=== PATIENT | male | born 1990 | race Caucasian/White ===

== ENCOUNTER → 2021-01-22 | Outpatient (CLI) | payer OTHER ==
[2021-01-22 14:46] LABS: APPEARANCE, URINE CLEAR (CLEAR); BACTERIA, URINE AUTO NEGATIVE (NEGATIVE); BILIRUBIN, URINE AUTO NEGATIVE (NEGATIVE); BLOOD, URINE BLOOD NEGATIVE (NEGATIVE); COLOR, URINE YELLOW (YELLOW); GLUCOSE, URINE (UA) AUTO NEGATIVE (NEGATIVE); KETONE, URINE AUTO NEGATIVE (NEGATIVE); LEUKOCYTE ESTERASE, URINE AUTO NEGATIVE (NEGATIVE); NITRITE, URINE AUTO NEGATIVE (NEGATIVE); PROTEIN, URINE AUTO NEGATIVE (NEGATIVE); RBC, URINE AUTO 0 /HPF (0-3); SPECIFIC GRAVITY URINE AUTO 1.015 (1.002-1.035); SQUAMOUS EPITHELIAL CELL UR AU 0 /HPF (0-6); UROBILINOGEN, URINE AUTO 0.2 mg/dL (0.0-2.0); WBC, URINE AUTO 1 /HPF (0-3)
[2021-01-22 14:53] LABS: BASO % 0.2 % (0.0-1.0); EOS # 0.1 10^3/uL (0.0-0.5); EOS % 0.7 % (0.0-3.0); HEMATOCRIT 43.8 % (42.0-52.0); HEMOGLOBIN 14.5 g/dl (13.5-17.5); LYMPH # 2.5 10^3/uL (1.5-5.0); LYMPH % 30.6 % (24.0-44.0); MEAN CORPUSCULAR HGB CONC 33.1 g/dl (32.0-36.5); MEAN CORPUSCULAR VOLUME 93.8 fl (80.0-96.0); MONO # 0.7 10^3/uL (0.0-0.8); MONO % 8.3 % (2.0-8.0); NEUTROPHILS # 4.9 10^3/uL (1.5-8.5); NEUTROPHILS % 60.1 % (36.0-66.0); PLATELET COUNT, AUTOMATED 312 10^3/uL (150-450); RED BLOOD COUNT 4.67 10^6/uL (4.30-6.10); WHITE BLOOD COUNT 8.2 10^3/uL (4.0-10.0)
[2021-01-22 15:52] LABS: ALBUMIN 3.8 GM/DL (3.2-5.2); ALT/SGPT 386 U/L (12-78); BILIRUBIN,TOTAL 0.3 MG/DL (0.2-1.0); BLOOD UREA NITROGEN 17 MG/DL (7-18); CALCIUM LEVEL 9.3 MG/DL (8.5-10.1); CARBON DIOXIDE LEVEL 28 MEQ/L (21-32); CHLORIDE LEVEL 108 MEQ/L (98-107); CREATININE FOR GFR 0.86 MG/DL (0.70-1.30); GLOMERULAR FILTRATION RATE > 60.0 (>60); GLUCOSE, FASTING 84 MG/DL (70-100); HEPATITIS B SURFACE ANTIGEN NEGATIVE (NEGATIVE); POTASSIUM SERUM 4.6 MEQ/L (3.5-5.1); SODIUM LEVEL 140 MEQ/L (136-145); TOTAL PROTEIN 7.2 GM/DL (6.4-8.2)
[2021-01-22 16:05] LABS: HEPATITIS B CORE ANTIBODY IGM NEGATIVE (NEGATIVE)
[2021-01-22 16:06] LABS: HEPATITIS A ANTIBODY IGM NEGATIVE (NEGATIVE)
[2021-01-22 16:08] LABS: HEPATITIS C VIRUS ABY INDEX > 11.0 INDEX (<0.8)
== END ==
LOC: M LAB 12:41
PROVIDERS: ATTEND Physician Assistant Medical
DX: Z02.2 Encounter for examination for admission to residential institution (principal); B15.9 Hepatitis A without hepatic coma; B16.9 Acute hepatitis B without delta-agent and without hepatic coma; B18.2 Chronic viral hepatitis C

== ENCOUNTER → 2021-02-21 | Outpatient (CLI) | payer OTHER ==
[2021-02-21 14:59] LABS: MEAN CORPUSCULAR HEMOGLOBIN 31.1 pg (27.0-33.0); MEAN CORPUSCULAR HGB CONC 34.1 g/dl (32.0-36.5); MEAN CORPUSCULAR VOLUME 91.3 fl (80.0-96.0); PLATELET COUNT, AUTOMATED 256 10^3/uL (150-450); RED BLOOD COUNT 4.82 10^6/uL (4.30-6.10); WHITE BLOOD COUNT 7.7 10^3/uL (4.0-10.0)
[2021-02-21 15:38] LABS: ALBUMIN 3.6 GM/DL (3.2-5.2); ALT/SGPT 273 U/L (12-78); BILIRUBIN,TOTAL 0.3 MG/DL (0.2-1.0); BLOOD UREA NITROGEN 11 MG/DL (7-18); CALCIUM LEVEL 8.6 MG/DL (8.5-10.1); CARBON DIOXIDE LEVEL 30 MEQ/L (21-32); CHLORIDE LEVEL 107 MEQ/L (98-107); CREATININE FOR GFR 0.89 MG/DL (0.70-1.30); GLOMERULAR FILTRATION RATE > 60.0 (>60); GLUCOSE, FASTING 101 MG/DL (70-100); POTASSIUM SERUM 4.1 MEQ/L (3.5-5.1); SODIUM LEVEL 139 MEQ/L (136-145)
[2021-02-21 15:55] LABS: HEPATITIS B SURFACE ANTIGEN NEGATIVE (NEGATIVE)
[2021-02-21 16:24] LABS: HIV 1&2 SCREEN CENTAUR NEGATIVE (NEGATIVE)
[2021-02-21 16:27] LABS: HEPATITIS C VIRUS ABY INDEX > 11.0 INDEX (<0.8)
--- NOTE | 2021-02-21 16:34 | ECGEPIP ---
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
[2021-02-21 16:41] LABS: GC DNA AMPLIFICATION NEGATIVE (NEGATIVE)
== END ==
LOC: M LAB 14:06
PROVIDERS: ATTEND Family Medicine
DX: F11.20 Opioid dependence, uncomplicated (principal)

== ENCOUNTER → 2021-02-22 | Outpatient (CLI) | payer OTHER ==
[2021-02-22 17:33] LABS: HEPATITIS B SURFACE ANTIBODY POSITIVE (POSITIVE); HIV 1&2 SCREEN CENTAUR NEGATIVE (NEGATIVE)
== END ==
LOC: M LAB 14:25
PROVIDERS: ATTEND Internal Medicine Infectious Disease
DX: B18.2 Chronic viral hepatitis C (principal)

== ENCOUNTER → 2022-01-30 | Outpatient (REF) | payer OTHER ==
[2022-01-30 18:26] LABS: ALBUMIN 4.3 GM/DL (3.2-5.2); ALT/SGPT 35 U/L (12-78); BILIRUBIN,TOTAL 0.6 MG/DL (0.2-1.0); BLOOD UREA NITROGEN 14 MG/DL (7-18); CALCIUM LEVEL 9.5 MG/DL (8.5-10.1); CARBON DIOXIDE LEVEL 31 MEQ/L (21-32); CHLORIDE LEVEL 104 MEQ/L (98-107); CREATININE FOR GFR 0.82 MG/DL (0.70-1.30); GLOMERULAR FILTRATION RATE > 60.0 (>60); GLUCOSE, FASTING 59 MG/DL (70-100); POTASSIUM SERUM 5.5 MEQ/L (3.5-5.1); SODIUM LEVEL 138 MEQ/L (136-145); TOTAL PROTEIN 7.5 GM/DL (6.4-8.2)
== END ==
LOC: M LAB REF 16:17
PROVIDERS: ATTEND Nurse Practitioner Family
DX: Z13.228 Encounter for screening for other metabolic disorders (principal)

== ENCOUNTER → 2022-05-01 | Outpatient (REF) | payer OTHER ==
[2022-05-01 12:53] LABS: ALKALINE PHOSPHATASE 85 U/L (46-116); ALT/SGPT 36 U/L (7.0-40); AST/SGOT 26 U/L (<34); BILIRUBIN,TOTAL 0.3 MG/DL (0.3-1.2); BLOOD UREA NITROGEN 18 MG/DL (9-23); CALCIUM LEVEL 9.4 MG/DL (8.5-10.1); CARBON DIOXIDE LEVEL 30 MMOL/L (20-31); CHLORIDE LEVEL 106 MMOL/L (98-107); CHOLESTEROL LEVEL 190 MG/DL (<200); CHOLESTEROL RISK RATIO 3.08 (<5); CREATININE FOR GFR 0.82 MG/DL (0.70-1.30); GLOMERULAR FILTRATION RATE > 60.0 (>60); GLUCOSE, FASTING 95 MG/DL (60-100); HDL CHOLESTEROL 61.6 MG/DL (>40); LDL CHOLESTEROL 113.2 MG/DL (<100); NON-HDL-C 128 MG/DL; POTASSIUM SERUM 4.7 MMOL/L (3.5-5.1); SODIUM LEVEL 142 MMOL/L (136-145); TOTAL PROTEIN 6.5 G/DL (5.7-8.2); TRIGLYCERIDES LEVEL 76 MG/DL (<150)
== END ==
LOC: M LAB REF 11:55
PROVIDERS: ATTEND Nurse Practitioner Family
DX: Z13.228 Encounter for screening for other metabolic disorders (principal)

== ENCOUNTER → 2022-08-27 | Outpatient (REF) | payer OTHER ==
[2022-08-27 18:04] LABS: CHOLESTEROL RISK RATIO 2.17 (<5); HDL CHOLESTEROL 67.6 MG/DL (>40); LDL CHOLESTEROL 68.4 MG/DL (<100); NON-HDL-C 79.4 MG/DL
== END ==
LOC: M LAB REF 16:41
PROVIDERS: ATTEND Nurse Practitioner Family
DX: R79.89 Other specified abnormal findings of blood chemistry (principal)

== ENCOUNTER 2022-09-17 11:25 | Inpatient (IN) | payer OTHER ==
[~2022-09-17] VITALS: Ht 162.6 cm; Wt 60.1 kg
[2022-09-17] MEDS ORDERED: NS 1,000 ML IV ONE ×3 (12:10→22:25)
[2022-09-17 12:43] LABS: ABG BASE EXCESS 3.2 (-2.0-2.0); ABG HCO3 21.5 MMOL/L (22.0-26.0); ABG O2 SATURATION 90.7 % (95.0-99.0); ABG STANDARD HCO3 27.2 MMOL/L. (22.0-26.0); ABG TOTAL CO2 22.1 MMOL/L (22.0-29.0)
[2022-09-17 12:51] LABS: ABG PARTIAL PRESSURE CO2 19.1 mmHg (35.0-45.0); ABG pH (ARTERIAL) 7.669 UNITS (7.350-7.450)
[2022-09-17 12:55] LABS: AMPHETAMINES LEVEL URINE NEGATIVE (NEGATIVE); BARBITURATES URINE NEGATIVE (NEGATIVE); BENZODIAZEPINES URINE NEGATIVE (NEGATIVE); CANNABINOIDS URINE NEGATIVE (NEGATIVE); COCAINE METABOLITE URINE NEGATIVE (NEGATIVE); METHADONE URINE NEGATIVE (NEGATIVE); OPIATES URINE NEGATIVE (NEGATIVE); PHENCYCLIDINE URINE NEGATIVE (NEGATIVE)
[2022-09-17 12:58] LABS: ETHYL ALCOHOL (ETHANOL) < 0.003 % (0.000-0.010)
[2022-09-17 12:59] LABS: ACETAMINOPHEN LEVEL < 2.0 UG/ML (10.0-20.0); SALICYLATE LEVEL < 3.0 MG/DL (<30)
[2022-09-17 13:01] LABS: THYROID STIMULATING HORMONE 1.619 uIU/ML (0.55-4.78)
[2022-09-17 13:05] LABS: CPK CREATINE PHOSPHOKINASE 606 U/L (46-171)
[2022-09-17 13:09] LABS: OSMOLALITY SERUM 272 MOSM/KG (275-295)
[2022-09-17 13:23] LABS: RSV AMPLIFICATION NEGATIVE (NEGATIVE)
[2022-09-17 13:37] LABS: ABG TOTAL CO2 22.3 MMOL/L (22.0-29.0)
[2022-09-17 13:40] LABS: ABG BASE EXCESS 2.1 (-2.0-2.0); ABG HCO3 21.7 MMOL/L (22.0-26.0); ABG O2 SATURATION 85.3 % (95.0-99.0); ABG PARTIAL PRESSURE CO2 22.1 mmHg (35.0-45.0)
[2022-09-17 13:43] LABS: ABG PARTIAL PRESSURE O2 38.4 mmHg (75.0-100.0); ABG pH (ARTERIAL) 7.609 UNITS (7.350-7.450)
[2022-09-17 14:25] LABS: BASO % 0.3 % (0.0-1.0); EOS % 0.1 % (0.0-3.0); HEMATOCRIT 38.3 % (42.0-52.0); HEMOGLOBIN 13.4 g/dl (13.5-17.5); LYMPH # 1.1 10^3/uL (1.5-5.0); LYMPH % 8.8 % (24.0-44.0); MEAN CORPUSCULAR HEMOGLOBIN 30.3 pg (27.0-33.0); MEAN CORPUSCULAR VOLUME 86.7 fl (80.0-96.0); MONO # 0.7 10^3/uL (0.0-0.8); MONO % 5.8 % (2.0-8.0); NEUTROPHILS # 10.2 10^3/uL (1.5-8.5); NEUTROPHILS % 84.5 % (36.0-66.0); PLATELET COUNT, AUTOMATED 349 10^3/uL (150-450); RED BLOOD COUNT 4.42 10^6/uL (4.30-6.10); WHITE BLOOD COUNT 12.1 10^3/uL (4.0-10.0)
[2022-09-17 14:35] LABS: ALBUMIN 4.1 G/DL (3.2-5.2); ALKALINE PHOSPHATASE 76 U/L (46-116); ALT/SGPT 36 U/L (7.0-40); AST/SGOT 55 U/L (<34); BILIRUBIN,DIRECT 0.2 MG/DL (<0.4); BILIRUBIN,TOTAL 0.8 MG/DL (0.3-1.2); BLOOD UREA NITROGEN 11 MG/DL (9-23); CALCIUM LEVEL 8.2 MG/DL (8.5-10.1); CARBON DIOXIDE LEVEL 17 MMOL/L (20-31); CHLORIDE LEVEL 102 MMOL/L (98-107); CREATININE FOR GFR 0.65 MG/DL (0.70-1.30); GLOMERULAR FILTRATION RATE > 60.0 (>60); GLUCOSE, FASTING 96 MG/DL (60-100); MAGNESIUM LEVEL 1.6 MG/DL (1.8-2.4); POTASSIUM SERUM 3.9 MMOL/L (3.5-5.1); SODIUM LEVEL 135 MMOL/L (136-145); TOTAL PROTEIN 6.7 G/DL (5.7-8.2)
[2022-09-17] MEDS ORDERED: MAG SULF 1GM/100ML (MAG RUN) 1 GM in IV 1 EA IV ONE (14:40)
[2022-09-17] MEDS ORDERED: LORazepam 2 MG/ML 1ML VIAL IV STA ×3 (15:55→21:50)
[2022-09-17 18:39] LABS: VENOUS BASE EXCESS 1.7 (-2.0-2.0); VENOUS HCO3 24.6 MMOL/L (23.0-27.0); VENOUS O2 SATURATION 98.7 % (60.0-80.0); VENOUS PARTIAL PRESSURE CO2 33.3 mmHg (38.0-50.0); VENOUS PARTIAL PRESSURE O2 135.1 mmHg (30.0-50.0); VENOUS PH 7.486 UNITS (7.330-7.430); VENOUS TOTAL CO2 25.6 MMOL/L (24.0-28.0)
[2022-09-17 19:19] LABS: ACETAMINOPHEN LEVEL < 2.0 UG/ML (10.0-20.0); BLOOD UREA NITROGEN 8 MG/DL (9-23); CALCIUM LEVEL 8.3 MG/DL (8.5-10.1); CARBON DIOXIDE LEVEL 24 MMOL/L (20-31); CHLORIDE LEVEL 106 MMOL/L (98-107); CREATININE FOR GFR 0.67 MG/DL (0.70-1.30); GLOMERULAR FILTRATION RATE > 60.0 (>60); GLUCOSE, FASTING 91 MG/DL (60-100); POTASSIUM SERUM 3.9 MMOL/L (3.5-5.1); SALICYLATE LEVEL < 3.0 MG/DL (<30); SODIUM LEVEL 140 MMOL/L (136-145)
[2022-09-17] MEDS ORDERED: HOME MED LIST COMPLETE! XX SCH (21:15)
[2022-09-17] MEDS ORDERED: HALOPERIDOL 5MG/ML 1ML VIAL IV ONE (22:00)
[2022-09-17] MEDS ORDERED: OLANZapine INTRAMUSCULAR 10MG VIAL IM ONE (22:00)
[2022-09-17] MEDS ORDERED: NS 1,000 ML IV SCH (22:25)
[2022-09-17] MEDS ORDERED: LORazepam 2 MG/ML 1ML VIAL IV PRN (22:25)
[2022-09-18] VITALS (63 sets, daily range): BP systolic 106–198; BP diastolic 49–117; TEMP 97.9–98.2; O2SAT 95–100
[2022-09-18] MEDS ORDERED: dexmedeTOMidine 200 MCG in IV 1 EA IV SCH (00:20)
[2022-09-18] MEDS ORDERED: LORazepam 2 MG/ML 1ML VIAL IV PRN (02:35)
[2022-09-18 03:05] LABS: HEMATOCRIT 37.9 % (42.0-52.0); HEMOGLOBIN 12.7 g/dl (13.5-17.5)
[2022-09-18] MEDS ORDERED: propofoL 200 MG/20 ML VIAL IV PRN ×2 (03:19→03:22)
[2022-09-18] MEDS ORDERED: ROCURONIUM BROMIDE 50MG/5ML VIAL IV ONE (03:22)
[2022-09-18 03:27] LABS: CPK CREATINE PHOSPHOKINASE 637 U/L (46-171)
[2022-09-18 03:32] LABS: ALBUMIN 4.1 G/DL (3.2-5.2); ALKALINE PHOSPHATASE 77 U/L (46-116); ALT/SGPT 31 U/L (7.0-40); AST/SGOT 33 U/L (<34); BILIRUBIN,TOTAL 0.9 MG/DL (0.3-1.2); BLOOD UREA NITROGEN 6 MG/DL (9-23); CALCIUM LEVEL 8.1 MG/DL (8.5-10.1); CARBON DIOXIDE LEVEL 24 MMOL/L (20-31); CHLORIDE LEVEL 110 MMOL/L (98-107); CREATININE FOR GFR 0.79 MG/DL (0.70-1.30); GLOMERULAR FILTRATION RATE > 60.0 (>60); GLUCOSE, FASTING 87 MG/DL (60-100); MAGNESIUM LEVEL 1.8 MG/DL (1.8-2.4); PHOSPHORUS LEVEL 2.7 MG/DL (2.5-4.9); POTASSIUM SERUM 3.9 MMOL/L (3.5-5.1); SODIUM LEVEL 144 MMOL/L (136-145); TOTAL PROTEIN 6.3 G/DL (5.7-8.2)
[2022-09-18] MEDS ORDERED: MIDAZOLAM INJ 2MG/2ML VIAL IV STA ×2 (03:33→04:19)
[2022-09-18] MEDS: MIDAZOLAM 100MG/100ML-0.9%NACL 100 MG in IV 1 EA IV SCH ×2 (03:50→19:15)
[2022-09-18] MEDS: dexmedeTOMidine 200 MCG in IV 1 EA IV SCH ×2 (04:03→07:53)
[2022-09-18] MEDS: propofoL 1,000 MG in IV 1 EA IV SCH ×4 (04:29→19:55)
[2022-09-18 04:32] LABS: ABG BASE EXCESS -2.7 (-2.0-2.0); ABG HCO3 21.2 MMOL/L (22.0-26.0); ABG O2 SATURATION 99.3 % (95.0-99.0); ABG PARTIAL PRESSURE CO2 33.9 mmHg (35.0-45.0); ABG PARTIAL PRESSURE O2 210.8 mmHg (75.0-100.0); ABG STANDARD HCO3 22.3 MMOL/L. (22.0-26.0); ABG TOTAL CO2 22.2 MMOL/L (22.0-29.0); ABG pH (ARTERIAL) 7.413 UNITS (7.350-7.450)
[2022-09-18 09:06] LABS: ALBUMIN 3.5 G/DL (3.2-5.2); ALKALINE PHOSPHATASE 66 U/L (46-116); ALT/SGPT 26 U/L (7.0-40); AST/SGOT 31 U/L (<34); BILIRUBIN,TOTAL 0.5 MG/DL (0.3-1.2); BLOOD UREA NITROGEN 7 MG/DL (9-23); CARBON DIOXIDE LEVEL 23 MMOL/L (20-31); CHLORIDE LEVEL 112 MMOL/L (98-107); CREATININE FOR GFR 0.78 MG/DL (0.70-1.30); GLOMERULAR FILTRATION RATE > 60.0 (>60); GLUCOSE, FASTING 99 MG/DL (60-100); MAGNESIUM LEVEL 1.9 MG/DL (1.8-2.4); PHOSPHORUS LEVEL 2.8 MG/DL (2.5-4.9); POTASSIUM SERUM 3.6 MMOL/L (3.5-5.1); SODIUM LEVEL 144 MMOL/L (136-145); TOTAL PROTEIN 5.5 G/DL (5.7-8.2)
[2022-09-18] MEDS: ENOXAPARIN 40MG/0.4ML SYRINGE (J1650 PER 10MG) SC SCH (09:37)
[2022-09-18] MEDS: PANTOPRAZOLE 40MG VIAL IV SCH (09:37)
[2022-09-18] MEDS: NS 1,000 ML IV SCH ×2 (11:26→21:20)
[2022-09-18] MEDS ORDERED: FENTANYL DRIP LOCK BOX KEY 1 EACH XX PRN (13:35)
[2022-09-18] MEDS ORDERED: MAG SULF 1GM/100ML (MAG RUN) 1 GM in IV 1 EA IV ONE (14:00)
[2022-09-18] MEDS ORDERED: fentaNYL CITRATE/NaCl 1,000 MCG in IV 1 EA IV SCH (14:00)
[2022-09-18 16:56] LABS: BLOOD UREA NITROGEN 5 MG/DL (9-23); CARBON DIOXIDE LEVEL 22 MMOL/L (20-31); CHLORIDE LEVEL 113 MMOL/L (98-107); CREATININE FOR GFR 0.73 MG/DL (0.70-1.30); GLOMERULAR FILTRATION RATE > 60.0 (>60); GLUCOSE, FASTING 70 MG/DL (60-100); POTASSIUM SERUM 3.5 MMOL/L (3.5-5.1); SODIUM LEVEL 145 MMOL/L (136-145)
[2022-09-18] MEDS: hydrALAZINE 20MG/ML 1ML VIAL IV PRN (21:23)
[2022-09-19] VITALS (15 sets, daily range): BP systolic 139–153; BP diastolic 61–81; TEMP 97.7–98.8; O2SAT 98–100
[2022-09-19] MEDS: propofoL 1,000 MG in IV 1 EA IV SCH (00:46)
[2022-09-19 04:38] LABS: HEMATOCRIT 38.8 % (42.0-52.0); HEMOGLOBIN 12.9 g/dl (13.5-17.5); MEAN CORPUSCULAR HEMOGLOBIN 30.4 pg (27.0-33.0); MEAN CORPUSCULAR HGB CONC 33.2 g/dl (32.0-36.5); MEAN CORPUSCULAR VOLUME 91.5 fl (80.0-96.0); PLATELET COUNT, AUTOMATED 324 10^3/uL (150-450); RED BLOOD COUNT 4.24 10^6/uL (4.30-6.10); WHITE BLOOD COUNT 11.4 10^3/uL (4.0-10.0)
[2022-09-19] MEDS: hydrALAZINE 20MG/ML 1ML VIAL IV PRN (05:11)
[2022-09-19 05:57] LABS: ABG BASE EXCESS -4.2 (-2.0-2.0); ABG HCO3 19.4 MMOL/L (22.0-26.0); ABG PARTIAL PRESSURE CO2 31.6 mmHg (35.0-45.0); ABG PARTIAL PRESSURE O2 67.1 mmHg (75.0-100.0); ABG STANDARD HCO3 20.9 MMOL/L. (22.0-26.0); ABG TOTAL CO2 20.4 MMOL/L (22.0-29.0); ABG pH (ARTERIAL) 7.406 UNITS (7.350-7.450)
[2022-09-19 06:28] LABS: ALBUMIN 3.7 G/DL (3.2-5.2); ALKALINE PHOSPHATASE 78 U/L (46-116); ALT/SGPT 26 U/L (7.0-40); AST/SGOT 22 U/L (<34); BILIRUBIN,TOTAL 0.4 MG/DL (0.3-1.2); BLOOD UREA NITROGEN 5 MG/DL (9-23); CALCIUM LEVEL 7.9 MG/DL (8.5-10.1); CARBON DIOXIDE LEVEL 21 MMOL/L (20-31); CHLORIDE LEVEL 110 MMOL/L (98-107); CREATININE FOR GFR 0.69 MG/DL (0.70-1.30); GLOMERULAR FILTRATION RATE > 60.0 (>60); GLUCOSE, FASTING 68 MG/DL (60-100); POTASSIUM SERUM 3.5 MMOL/L (3.5-5.1); SODIUM LEVEL 143 MMOL/L (136-145)
[2022-09-19] MEDS: NS 1,000 ML IV SCH (07:57)
[2022-09-19] MEDS: PANTOPRAZOLE 40MG VIAL IV SCH (08:31)
[2022-09-19] MEDS: ENOXAPARIN 40MG/0.4ML SYRINGE (J1650 PER 10MG) SC SCH (08:31)
[2022-09-19] MEDS ORDERED: LORazepam 2 MG/ML 1ML VIAL IM STA (08:56)
[2022-09-19] MEDS ORDERED: LORazepam 2 MG/ML 1ML VIAL IV STA (09:02)
== END 2022-09-19 18:03 | disposition home or self-care (01) | DRG 812 ==
LOC: EDBD 11:25 → M ED 11:25 → M ED INP 22:11 → M ICU 23:53
PROVIDERS: ADMIT Internal Medicine; ATTEND Internal Medicine
PROC: 5A1945Z Respiratory Ventilation, 24-96 Consecutive Hours (ICD-10-PCS; principal; 2022-09-18)
DX: T50.904A Poisoning by unspecified drugs, medicaments and biological substances, undetermined, initial encounter (principal); E87.3 Alkalosis; R45.851 Suicidal ideations; J96.01 Acute respiratory failure with hypoxia; G92.8 Other toxic encephalopathy; R94.31 Abnormal electrocardiogram [ECG] [EKG]; Z88.0 Allergy status to penicillin; F33.9 Major depressive disorder, recurrent, unspecified

== ENCOUNTER 2022-09-25 17:36 | Emergency (ER) | payer OTHER ==
[~2022-09-25] VITALS: Ht 165.1 cm; Wt 60.1 kg
[2022-09-25] MEDS ORDERED: LORazepam 2 MG/ML 1ML VIAL IV STA (17:44)
[2022-09-25] MEDS ORDERED: NS 1,000 ML IV SCH (17:45)
[2022-09-25 18:35] LABS: BLOOD UREA NITROGEN 14 MG/DL (9-23); CARBON DIOXIDE LEVEL 29 MMOL/L (20-31); CHLORIDE LEVEL 100 MMOL/L (98-107); CREATININE FOR GFR 0.73 MG/DL (0.70-1.30); GLOMERULAR FILTRATION RATE > 60.0 (>60); GLUCOSE, FASTING 142 MG/DL (60-100); SODIUM LEVEL 137 MMOL/L (136-145)
[2022-09-25 18:37] LABS: T UPTAKE 29.9 % (22.5-37.0); THYROID STIMULATING HORMONE 1.002 uIU/ML (0.55-4.78); THYROXINE (T4) 10.2 UG/DL (4.5-10.9)
[2022-09-25 21:00] LABS: AMPHETAMINES LEVEL URINE NEGATIVE (NEGATIVE); BARBITURATES URINE NEGATIVE (NEGATIVE); BENZODIAZEPINES URINE NEGATIVE (NEGATIVE); COCAINE METABOLITE URINE NEGATIVE (NEGATIVE); METHADONE URINE NEGATIVE (NEGATIVE); OPIATES URINE NEGATIVE (NEGATIVE); PHENCYCLIDINE URINE NEGATIVE (NEGATIVE)
[2022-09-25 21:01] LABS: CANNABINOIDS URINE NEGATIVE (NEGATIVE)
[2022-09-25 21:16] VITALS: BP 174/82; TEMP 98.2; O2SAT 97
== END 2022-09-25 21:29 | disposition home or self-care (01) ==
LOC: M ED 17:36
DX: F19.10 Other psychoactive substance abuse, uncomplicated (principal); F41.9 Anxiety disorder, unspecified; R00.0 Tachycardia, unspecified; I45.19 Other right bundle-branch block; Z88.0 Allergy status to penicillin
CPT/HCPCS: 36415; 80048; 80307; 84436; 84443; 84479; 93005; 93041; 94760; 96374; 99285; J2060

== ENCOUNTER 2022-11-30 05:52 | Emergency (ER) | payer OTHER ==
[~2022-11-30] VITALS: Ht 165.1 cm; Wt 61.2 kg
[2022-11-30] MEDS ORDERED: MED REC IN PROGRESS XX SCH (08:45)
[2022-11-30] MEDS ORDERED: IBUP-1114 PO (09:02)
[2022-11-30] MEDS ORDERED: VENL150C43 PO (09:02)
[2022-11-30] MEDS ORDERED: HOME MED LIST COMPLETE! XX SCH (09:15)
[2022-11-30 09:58] VITALS: BP 142/82; TEMP 97.1; O2SAT 97
== END 2022-11-30 10:02 | disposition home or self-care (01) ==
LOC: M ED 05:52
DX: F19.10 Other psychoactive substance abuse, uncomplicated (principal); F17.200 Nicotine dependence, unspecified, uncomplicated; Z88.0 Allergy status to penicillin; Z79.899 Other long term (current) drug therapy; Z79.1 Long term (current) use of non-steroidal anti-inflammatories (NSAID)

== ENCOUNTER 2023-04-29 07:57 | Inpatient (IN) | payer OTHER ==
[2023-04-29] VITALS (21 sets, daily range): BP systolic 132–199; BP diastolic 61–130; TEMP 98.3–100.6; O2SAT 96–99
[~2023-04-29 07:57] MED LIST: IBUP-1114 PO; VENL150C43 PO
[2023-04-29] MEDS ORDERED: LORazepam 2 MG/ML 1ML VIAL IM STA (08:27)
[2023-04-29] MEDS ORDERED: LORazepam 2 MG/ML 1ML VIAL IV STA ×2 (09:21→10:05)
[2023-04-29 09:35] LABS: BASO % 0.2 % (0.0-1.0); HEMOGLOBIN 13.4 g/dl (13.5-17.5); LYMPH % 6.7 % (24.0-44.0); MEAN CORPUSCULAR HEMOGLOBIN 28.6 pg (27.0-33.0); MEAN CORPUSCULAR HGB CONC 32.7 g/dl (32.0-36.5); MEAN CORPUSCULAR VOLUME 87.4 fl (80.0-96.0); MONO # 0.3 10^3/uL (0.0-0.8); NEUTROPHILS # 13.3 10^3/uL (1.5-8.5); NEUTROPHILS % 90.8 % (36.0-66.0); PLATELET COUNT, AUTOMATED 483 10^3/uL (150-450); RED BLOOD COUNT 4.69 10^6/uL (4.30-6.10); WHITE BLOOD COUNT 14.6 10^3/uL (4.0-10.0)
[2023-04-29 09:56] LABS: ETHYL ALCOHOL (ETHANOL) < 0.003 % (0.000-0.010)
[2023-04-29 09:58] LABS: SALICYLATE LEVEL < 3.0 MG/DL (<30)
[2023-04-29 09:59] LABS: THYROID STIMULATING HORMONE 0.711 uIU/ML (0.55-4.78)
[2023-04-29 10:00] LABS: ALBUMIN 4.1 G/DL (3.2-5.2); ALKALINE PHOSPHATASE 92 U/L (46-116); ALT/SGPT 18 U/L (7.0-40); AST/SGOT 36 U/L (<34); BILIRUBIN,DIRECT < 0.1 MG/DL (<0.4); BILIRUBIN,TOTAL 0.3 MG/DL (0.3-1.2); BLOOD UREA NITROGEN 21 MG/DL (9-23); CALCIUM LEVEL 9.1 MG/DL (8.5-10.1); CARBON DIOXIDE LEVEL 23 MMOL/L (20-31); CHLORIDE LEVEL 103 MMOL/L (98-107); GLOMERULAR FILTRATION RATE > 60.0 (>60); GLUCOSE, FASTING 109 MG/DL (60-100); SODIUM LEVEL 137 MMOL/L (136-145); TOTAL PROTEIN 7.8 G/DL (5.7-8.2)
[2023-04-29] MEDS: LORazepam 2 MG/ML 1ML VIAL IV PRN ×5 (10:14→12:50)
[2023-04-29] MEDS ORDERED: NS 1,000 ML IV ONE (11:55)
[2023-04-29] MEDS ORDERED: ACETAMINOPHEN 650MG SUPP PR ONE (12:00)
[2023-04-29] MEDS ORDERED: MED REC IN PROGRESS XX SCH (12:40)
[2023-04-29 12:51] LABS: BARBITURATES URINE NEGATIVE (NEGATIVE); BENZODIAZEPINES URINE NEGATIVE (NEGATIVE); COCAINE METABOLITE URINE NEGATIVE (NEGATIVE)
[2023-04-29 12:52] LABS: CANNABINOIDS URINE NEGATIVE (NEGATIVE); METHADONE URINE NEGATIVE (NEGATIVE); OPIATES URINE NEGATIVE (NEGATIVE); PHENCYCLIDINE URINE NEGATIVE (NEGATIVE)
[2023-04-29 12:53] LABS: AMPHETAMINES LEVEL URINE POSITIVE (NEGATIVE)
[2023-04-29] MEDS: D5W/LR 1,000 ML IV SCH ×2 (13:05→23:05)
[2023-04-29] MEDS ORDERED: LORazepam 2 MG/ML 1ML VIAL IV PRN ×2 (13:35→16:30)
[2023-04-29] MEDS ORDERED: D5W IV ONE ×2 (14:00→19:00)
[2023-04-29] MEDS ORDERED: THIAMINE 200MG 2ML VIAL IM ONE (14:00)
[2023-04-29] MEDS ORDERED: ACETYLCYSTEINE IV ONE ×2 (14:00→19:00)
[2023-04-29] MEDS ORDERED: dexmedeTOMIDine (4MCG/ML)200MCG/50ML BTL (PRECEDEX) As Ordered ONE (14:53)
[2023-04-29] MEDS ORDERED: ACETYLCYSTEINE 3,100 MG in D5W 500 ML IV ONE (15:00)
[2023-04-29] MEDS: dexmedeTOMidine 200 MCG in IV 1 EA IV SCH ×2 (15:26→18:42)
[2023-04-29] MEDS ORDERED: OLANZapine INTRAMUSCULAR 10MG VIAL IM ONE (16:35)
[2023-04-29] MEDS ORDERED: MULTIVITAMIN -ADULT INJECTION 10 ML, THIAMINE INJection 100 MG, FOLIC ACID 1 MG in NS 1... IV ONE (17:00)
[2023-04-30] VITALS (11 sets, daily range): BP systolic 115–171; BP diastolic 59–86; TEMP 98–98.7; O2SAT 98–100
[2023-04-30] MEDS: dexmedeTOMidine 200 MCG in IV 1 EA IV SCH (01:03)
[2023-04-30] MEDS: D5W/LR 1,000 ML IV SCH (02:13)
[2023-04-30 06:12] LABS: CPK CREATINE PHOSPHOKINASE 260 U/L (46-171)
[2023-04-30 06:14] LABS: ALBUMIN 3.2 G/DL (3.2-5.2); ALKALINE PHOSPHATASE 67 U/L (46-116); ALT/SGPT 11 U/L (7.0-40); AST/SGOT 15 U/L (<34); BILIRUBIN,TOTAL 0.6 MG/DL (0.3-1.2); BLOOD UREA NITROGEN 7 MG/DL (9-23); CALCIUM LEVEL 8.4 MG/DL (8.5-10.1); CARBON DIOXIDE LEVEL 24 MMOL/L (20-31); CHLORIDE LEVEL 107 MMOL/L (98-107); CREATININE FOR GFR 0.55 MG/DL (0.70-1.30); GLOMERULAR FILTRATION RATE > 60.0 (>60); GLUCOSE, FASTING 131 MG/DL (60-100); POTASSIUM SERUM 3.6 MMOL/L (3.5-5.1); SODIUM LEVEL 140 MMOL/L (136-145); TOTAL PROTEIN 6.1 G/DL (5.7-8.2)
[2023-04-30] MEDS ORDERED: ENOXAPARIN 40MG/0.4ML SYRINGE (J1650 PER 10MG) SC SCH (09:00)
[2023-04-30] MEDS ORDERED: HOME MED LIST COMPLETE! XX SCH (10:10)
== END 2023-04-30 12:23 | disposition left against medical advice (07) | DRG 812 ==
LOC: M ED 07:57 → EDBD 07:57 → M ED INP 13:05 → ENRESERV 13:59 → M ICU 14:52
PROVIDERS: ADMIT Internal Medicine Pulmonary Disease; ATTEND Internal Medicine Pulmonary Disease
DX: T43.621A Poisoning by amphetamines, accidental (unintentional), initial encounter (principal); G93.41 Metabolic encephalopathy; F32.A Depression, unspecified; I10 Essential (primary) hypertension; Z79.899 Other long term (current) drug therapy; Z88.0 Allergy status to penicillin; Z20.822 Contact with and (suspected) exposure to COVID-19

== ENCOUNTER 2023-05-27 04:33 | Observation (INO) | payer MEDICAID, OTHER ==
[~2023-05-27] VITALS: Ht 165.1 cm; Wt 57.8 kg
[2023-05-27] MEDS: KETOROLAC 60MG 2ML VIAL IM ONE (06:48)
[2023-05-27] MEDS ORDERED: MORPHINE 10 MG/ML 1ML VIAL IM ONE (07:25)
[2023-05-27] MEDS: MORPHINE 4 MG/ML 1ML VIAL IV ONE (07:48)
[2023-05-27] MEDS ORDERED: ACETAMINOPHEN TAB 650MG DOSE (2X325MG) PO PRN (11:30)
[2023-05-27] MEDS ORDERED: HOME MED LIST COMPLETE! XX SCH (11:30)
[2023-05-27] MEDS ORDERED: MORPHINE 2 MG/ML 1ML VIAL IV PRN ×2 (11:35)
[2023-05-27 11:56] LABS: BASO % 0.2 % (0.0-1.0); HEMATOCRIT 40.8 % (42.0-52.0); HEMOGLOBIN 13.6 g/dl (13.5-17.5); LYMPH # 1.5 10^3/uL (1.5-5.0); LYMPH % 9.5 % (24.0-44.0); MEAN CORPUSCULAR HEMOGLOBIN 28.8 pg (27.0-33.0); MEAN CORPUSCULAR HGB CONC 33.3 g/dl (32.0-36.5); MEAN CORPUSCULAR VOLUME 86.4 fl (80.0-96.0); MONO # 0.6 10^3/uL (0.0-0.8); NEUTROPHILS # 13.1 10^3/uL (1.5-8.5); NEUTROPHILS % 85.8 % (36.0-66.0); PLATELET COUNT, AUTOMATED 429 10^3/uL (150-450); RED BLOOD COUNT 4.72 10^6/uL (4.30-6.10); WHITE BLOOD COUNT 15.3 10^3/uL (4.0-10.0)
[2023-05-27 12:20] LABS: ALBUMIN 4.3 G/DL (3.2-5.2); ALKALINE PHOSPHATASE 89 U/L (46-116); ALT/SGPT 21 U/L (7.0-40); AST/SGOT 21 U/L (<34); BILIRUBIN,TOTAL 1.6 MG/DL (0.3-1.2); BLOOD UREA NITROGEN 15 MG/DL (9-23); CALCIUM LEVEL 9.1 MG/DL (8.5-10.1); CARBON DIOXIDE LEVEL 20 MMOL/L (20-31); CHLORIDE LEVEL 100 MMOL/L (98-107); CREATININE FOR GFR 0.59 MG/DL (0.70-1.30); GLOMERULAR FILTRATION RATE > 60.0 (>60); GLUCOSE, FASTING 109 MG/DL (60-100); MAGNESIUM LEVEL 1.9 MG/DL (1.8-2.4); POTASSIUM SERUM 4.4 MMOL/L (3.5-5.1); SODIUM LEVEL 133 MMOL/L (136-145); TOTAL PROTEIN 7.5 G/DL (5.7-8.2)
[2023-05-27 12:32] LABS: ALBUMIN 4.3 G/DL (3.2-5.2); BILIRUBIN,DIRECT 0.5 MG/DL (<0.4); BILIRUBIN,TOTAL 1.6 MG/DL (0.3-1.2); TOTAL PROTEIN 7.6 G/DL (5.7-8.2)
[2023-05-27] MEDS: ENOXAPARIN 40MG/0.4ML SYRINGE (J1650 PER 10MG) SC SCH (13:06)
[2023-05-27 13:25] LABS: RSV AMPLIFICATION NEGATIVE (NEGATIVE)
[2023-05-27 15:20] VITALS: BP 149/80; TEMP 97; O2SAT 100
[2023-05-27] MEDS: KETOROLAC 30 MG/ML 1ML VIAL IV PRN (18:00)
[2023-05-27 22:00] VITALS: BP 161/83; TEMP 98.8
[2023-05-28] MEDS: KETOROLAC 30 MG/ML 1ML VIAL IM PRN (02:34)
[2023-05-28 05:41] LABS: APPEARANCE, URINE CLEAR (CLEAR); BACTERIA, URINE AUTO NEGATIVE (NEGATIVE); BILIRUBIN, URINE AUTO NEGATIVE (NEGATIVE); BLOOD, URINE BLOOD NEGATIVE (NEGATIVE); COLOR, URINE YELLOW (YELLOW); GLUCOSE, URINE (UA) AUTO NEGATIVE (NEGATIVE); KETONE, URINE AUTO 2+ mg/dL (NEGATIVE); LEUKOCYTE ESTERASE, URINE AUTO NEGATIVE (NEGATIVE); MUCUS, URINE SMALL (NEGATIVE); NITRITE, URINE AUTO NEGATIVE (NEGATIVE); PROTEIN, URINE AUTO 1+ mg/dL (NEGATIVE); RBC, URINE AUTO 1 /HPF (0-3); SPECIFIC GRAVITY URINE AUTO 1.033 (1.002-1.035); SQUAMOUS EPITHELIAL CELL UR AU 0 /HPF (0-6); UROBILINOGEN, URINE AUTO 0.2 mg/dL (0.0-2.0); WBC, URINE AUTO 2 /HPF (0-3)
[2023-05-28 05:45] LABS: BASO % 0.1 % (0.0-1.0); EOS % 0.1 % (0.0-3.0); HEMATOCRIT 42.8 % (42.0-52.0); HEMOGLOBIN 14.3 g/dl (13.5-17.5); LYMPH # 1.4 10^3/uL (1.5-5.0); MEAN CORPUSCULAR HEMOGLOBIN 29.2 pg (27.0-33.0); MEAN CORPUSCULAR HGB CONC 33.4 g/dl (32.0-36.5); MEAN CORPUSCULAR VOLUME 87.5 fl (80.0-96.0); MONO # 0.7 10^3/uL (0.0-0.8); MONO % 4.3 % (2.0-8.0); NEUTROPHILS # 13.6 10^3/uL (1.5-8.5); NEUTROPHILS % 86.1 % (36.0-66.0); PLATELET COUNT, AUTOMATED 442 10^3/uL (150-450); RED BLOOD COUNT 4.89 10^6/uL (4.30-6.10); WHITE BLOOD COUNT 15.9 10^3/uL (4.0-10.0)
[2023-05-28 06:00] VITALS: BP 163/85; TEMP 99.7
[2023-05-28 06:01] LABS: BARBITURATES URINE NEGATIVE (NEGATIVE); CANNABINOIDS URINE NEGATIVE (NEGATIVE); METHADONE URINE NEGATIVE (NEGATIVE); PHENCYCLIDINE URINE NEGATIVE (NEGATIVE)
[2023-05-28 06:03] LABS: AMPHETAMINES LEVEL URINE POSITIVE (NEGATIVE); BENZODIAZEPINES URINE POSITIVE (NEGATIVE); COCAINE METABOLITE URINE POSITIVE (NEGATIVE); OPIATES URINE POSITIVE (NEGATIVE)
[2023-05-28 06:16] LABS: BLOOD UREA NITROGEN 16 MG/DL (9-23); CALCIUM LEVEL 8.9 MG/DL (8.5-10.1); CARBON DIOXIDE LEVEL 24 MMOL/L (20-31); CHLORIDE LEVEL 101 MMOL/L (98-107); CREATININE FOR GFR 0.64 MG/DL (0.70-1.30); GLOMERULAR FILTRATION RATE > 60.0 (>60); GLUCOSE, FASTING 155 MG/DL (60-100); POTASSIUM SERUM 4.8 MMOL/L (3.5-5.1); SODIUM LEVEL 133 MMOL/L (136-145)
[2023-05-28 07:05] LABS: GC DNA AMPLIFICATION NEGATIVE (NEGATIVE)
[2023-05-28] MEDS ORDERED: DICL25TA11 PO (09:54)
[2023-05-28] MEDS: LORazepam 0.5 MG TAB PO ONE (11:13)
== END 2023-05-28 11:15 | disposition home or self-care (01) ==
LOC: M ED 04:33 → M ED INP 10:59 → ENRESERV 14:36 → M MS5PR 15:15
PROVIDERS: ADMIT Internal Medicine; ATTEND Internal Medicine
DX: S92.002A Unspecified fracture of left calcaneus, initial encounter for closed fracture (principal); W15.XXXA Fall from cliff, initial encounter; Y92.89 Other specified places as the place of occurrence of the external cause; Y93.9 Activity, unspecified; Y99.9 Unspecified external cause status; R41.82 Altered mental status, unspecified; R53.83 Other fatigue; F19.10 Other psychoactive substance abuse, uncomplicated; F32.A Depression, unspecified; R03.0 Elevated blood-pressure reading, without diagnosis of hypertension; F17.218 Nicotine dependence, cigarettes, with other nicotine-induced disorders; Z88.0 Allergy status to penicillin
CPT/HCPCS: 29515; 70450; 72110; 72131; 73590; 73610; 73630; 73700; 80048; 80053; 80076; 80307; 81001; 82077; 83735; 85025; 87086; 87631; 87810; 87850; 96372; 96374; 96375; 99285; J1650; J1885